=== PATIENT | male | born 2005 | race Caucasian/White ===

== ENCOUNTER 2025-02-26 13:06 | Outpatient (AMB) | payer OTHER, SELFPAY ==
--- NOTE | 2025-02-26 13:07 | A.OFFVIS_ITS ---
Vital Signs 02/26/25 13:14 Height 5 ft 7 in Weight 130 lb BMI 20.4 Intake Visit Reasons: New Pt - right middle trigger finger Intake Note: Asim is a 19 year old right hand dominant male who presents today as a New Patient for evaluation of Right Middle Finger Locking & Catching. At today's visit he states that a year ago is when he had a right middle finger injury due to climbing. He stated that he was seen at another Orthopedic Office where he was referred to OT and was given a cortisone injection. Patient added that after receiving the injection is when he noticed the discomfort. He states that he is currently attending OT at [facility]. He noted that he has slight numbness around the middle finger but does not radiate into the hand or other fingers. . Allergies No Known Allergies Allergy (Verified 02/26/25 13:14) HPI HPI New Pt - right middle trigger finger: Details: Asim is a 19 year old right hand dominant male who presents today as a New Patient for evaluation of Right Middle Finger Locking & Catching. At today's visit he states that a year ago is when he had a right middle finger injury due to climbing. He stated that he was seen at another Orthopedic Office where he was referred to OT and was given a cortisone injection. Patient added that after receiving the injection is when he noticed the discomfort. He states that he is currently attending OT at [facility]. He noted that he has slight numbness around the middle finger but does not radiate into the hand or other fingers. Of note, the patient does state that the finger only walked on that 1 occasion, and has not had any significant locking since. 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 Neuro: Normal sensation of the tips of all digits of the right hand at this time Vascular: Cap refill brisk Pain: No tenderness to palpation of the A1 basil of the right middle finger No pain with range of motion of the right hand ROM: Patient is able to make a closed fist and extend all digits of the right hand fully No visible or palpable locking and catching of the right middle finger in the office today Skin: No lacerations or abrasions. General: No ecchymosis, erythema, or evidence of infection. Psych: Appears grossly normal Affect normal Attitude cooperative Assessment & Plan Assessment & Plan (1) Trigger finger, right middle finger: Code(s): M65.331 - Trigger finger, right middle finger Category: Medical Plan 1. Right middle finger trigger finger With only 1 episode of locking and catching noted Patient is educated about this condition Patient is educated about the typical recovery course At this time, due to having no ongoing symptoms at this time, I feel it is best for the patient to continue occupational therapy If the patient does begin to experience any further locking and catching of the right middle finger, he should call us for treatment options, including but not limited to injections Patient understands this in his amenable to this plan Follow-up as needed with any acute concerns Coding Level of Care Code New Pt Level 3 (85133) Diagnoses Trigger finger, right middle finger M65.331
[2025-02-26 13:14] VITALS: BMI 20.4
--- OUTSIDE RECORDS SUMMARY | 2025-02-26 15:49 | XMS_ITS | Clinical Summary ---
Author Organization [facility] Address [address] [place] [phone] Phone Care Team Providers Care Clinical Support Associate Name Role Phone Jennifer Isbell MD Primary Care Provider [phone] Allergies No known active allergies Medications No known medications Active Problems Problem Noted Date Diagnosed Date Well adult exam 10/29/2024 Assessment & Plan (10/29/2024 3:02 PM EDT): Well 19 yr old Consulting hand ortho for discomfort right index finger after a rock climbing injury [place] January Already consulted with DR Azul, ortho Up to ate imms Return one year and as needed Call with concerns Pain in finger 10/25/2024 Well adolescent visit 10/14/2023 Assessment & Plan (10/14/2023 4:04 PM EDT): Well 17 yr old UTD imms Re evaluate one year and prn Labs per rders Resolved Problems Problem Noted Date Diagnosed Date Resolved Date Fever 07/12/2024 10/29/2024 Cough in pediatric patient 07/12/2024 0 10/29/2024 Viral pharyngitis 03/23/2024 10/29/2024 Assessment & Plan (03/23/2024 3:46 PM EST): Sore throat for one wek, no associated symptoms No fevers, temp at office 99 tympanic Neg home covid test Rapid strep neg TC Symptomatic Rx Re evaluate if not improving, call with concerns Fatigue 02/06/2024 03/23/2024 Assessment & Plan (02/07/2024 10:05 AM EDT): Fatigue with intermittent cough since mid November, and feeling warm even though afebrile Symptoms started after covid infection, had covid early November with another rebound covid illness a week later No associated cardiovascular symptoms, no palpitations, not dizzy, no shortness of breath or chest pain Had labs done ( routine well labs that he could not get done with physical Labs were done December 22, steph [facility] CMP TSH) Exam today is remarkable likely fatigue is post covid, ?? Long covid Does not need to repeat above labs No specific intervention, pay attention to proper sleep and diet Rest as needed, cont with basketball and rock climbing as able Return if not improving by winter break ( currently in [employer], [facility]) Call with concerns Wants to get flu vaccine later Acne 03/06/2019 10/29/2024 Encounters Date Type Department Care Team Description 01/25/2025 4:05 PM EDT Follow-Up [facility], [address] [place] [address] Marlo Heller MD Acquired trigger finger (Primary Dx) 12/04/2024 3:50 PM EDT Follow-Up [facility], [address] [place] [address] Marlo Heller MD Synovitis and tenosynovitis (Primary Dx); Tendinitis 11/28/2024 Telephone [facility], [address] [place] [address] Marlo Heller MD from Last 3 Months Immunizations Immunization Administration Dates Next Due COVID-19 (Pre-02/14) Pfizer Vaccine, mRNA, PF 04/20/2021 DTaP 11/18/2009, 7,05/10/2005,03/03,2004 [id number] FORMULATION 04/16/2009,02/24 HPV9 09/05/2017,03/04/2017 Hepatitis A, Unspecified 07/18/2009,01/15/2009 Hepatitis B, unspecified formulation 05/10/2005, 2004,2004 Hib, unspecified formulation 02/02/2006, 05/10/2005,03/03/2005,12/29 INFLUENZA, SPLIT VIRUS, TRIVALENT PF 03/03/2024 INFLUENZA, SPLIT VIRUS, TRIV ALENT W/ PRESERVATIVE IM 02/19/2014 IPV 11/18/2009, 7,03/03/2005,12/29 Influenza Quadrivalent MDCK Preservative Free IM 03/09/2020,01/29/2016 Influenza Quadrivalent Prese rvative Free IM 03/28/2022,02/04/2021,03/06/2019,02/11 Influenza, Unspecified Formulation 02/03,02/29/2012,01/22/2011,02/21,01/15/2009,01/22/2008,03/23/2007 ,03/08/2006,02/02/2006,05/10/2005 MMR 10/30/2008,02/02/2006 Meningococcal B, OMV (MenB-4C) 11/18/2022,2022 Meningococcal MCV4P 10/12/2021,03/02/2016 Pneumococcal, Unspecified Formulation ,05/10/2005,03/03/2005,12/29 Tdap 03/02/2016 Varicella 10/30/2008,11/05/2005 Social History Tobacco Use Types Packs/Day Years Used Date Smoking Tobacco: Never Passive Smoke Exposure: Never Smokeless Tobacco: Never Tobacco Cessation:Counseling Given: Not Answered Alcohol Use Standard Drinks/Week Comments Not Currently 0 (1 standard drink = 0.6 oz pur e alcohol) rare alcohol Education Answer Date Recorded Are you interested in more education? Not on reza e 08/21/2022 Are you concerned about learning? Not on file 08/21/2022 No 08/21/2022 No 08/21/2022 Digital Access Answer Date Recorded No 09/19/2022 No 09/19/2022 Reliable internet access at home? Not on file 09/19/2022 Device with a working camera? Not on file Sex and Gender Information Value Date Recorded Sex Assigned at Not on file Legal Sex Male 8:20 PM EST Gender Identity Not on file Sexual Orientation Not on file Last Filed Vital Signs Vital Sign Reading Time Taken Comments Blood Pressure 104/60 10/29/2024 1:53 PM EDT Pulse 60 10/29/2024 1:53 PM EDT Temperature 37.1 C (98.8 F) 07/12/2024 10:47 AM EDT Respiratory Rate 16 02/09/2024 2:41 PM EDT Oxygen Saturation 98% 07/12/2024 10:47 AM EDT Inhaled Oxygen Concentration - - Weight 61.2 kg (135 lb) 01/25/2025 2:04 PM EDT Height 170.2 cm (5' 7 ) 01/25/2025 2:04 PM EDT Body Mass Index 21.14 01/25/2025 2:04 PM EDT Plan of Treatment Health Maintenance Due Date Last Done Comments HEPATITIS C SCREENING 2022 HIV ONE-TIME SCREENING (18-65 YEARS) 2022 INFLUENZA VACCINE (#1) 2024 , 03/28/2022, 02/04/2021, Additional history exists COVID-19 VACCINE ( season) 2024 05/15/2024, 03/11/2023, 11/28/2022, Additional history exists DEPRESSION SCREENING 10/29/2025 10/29/2024, 10/30/19 25 DEVELOPMENTAL/BEHAVIORAL SCREENING (PHQ, PSC, or SWYC) 10/29/2025 10/29/2024, 10/29/2024, 10/14/2023 SMOKING Hx and SMOKELESS TOBACCO SCREENING 10/29/2025 10/29/2024 COMBINED DTaP,Tdap,Td (7 - Td or Tdap) 03/02/2026 03/02/2016, 11/18/2009, 05/04/2006, Additional history exists PNEUMOCOCCAL VACCINES (0-49 years) Aged Out 11/05/2005, 05/10/2005, 03/03/2005, Additional history exists No longer eligible based on patient's age to complete this topic HIB VACCINES Completed 02/02/2006, 04/25, 03/03/2005, Additional history exists MMR VACCINES Completed 10/30/2008, 02/02/2006 VARICELLA VACCINES Completed 10/30/2008, 11/05/2005 HEPATITIS A VACCINES Completed 07/18/2009, 01/16/20 09 HPV VACCINES Completed 09/05/2017, 03/04/2017 MENINGOCOCCAL VACCINES (ACWY) Completed 10/12/2021, 03/02/2016 MENINGOCOCCAL VACCINES (B) Completed 11/18/2022, ADOLESCENT UNIVERSAL LIPID SCREENING Completed 12/23/2023 Medical Devices Not on file Procedures Procedure Name Priority Date/Time Associated Diagnosis Comments LIPID PANEL Routine 12/23/2023 2:01 PM EDT Well adolescent visit from Last 3 Months or Most Recently Relevant to Health Maintenance Results * Lipid panel (12/23/2023 2:01 PM EDT) Cholesterol 147 125 - 200 mg/dL [facility] (CLIA# [id number]) Comment: Cholesterol Reference: Desirable cholesterol: < 170 mg/dL Borderline cholesterol: 170-200 mg/dL High cholesterol: > 200 mg/dL Triglycerides 83 0 - 150 mg/dL [facility] (CLIA# [id number]) HDL Cholesterol 50 >40 mg/dL [facility] (CLIA# [id number]) Comment: HDL Reference: Low (Undesirable, High Risk): <40.0 mg/dL High (Desirable, Low Risk): >=60.0 mg/dL LDL Cholesterol(Calc) 80.6 <160 mg/dL [facility] (CLIA# [id number]) Comment: LDL Reference: OPTIMAL: <100 mg/dL NEAR OPTIMAL/ABOVE OPTIMAL: 100-129 mg/dL BORDERLINE HIGH: 130-159 mg/dL HIGH: 160-189 mg/dL VERY HIGH: >=190 mg/dL Chol/HDL Ratio 3.0 1.5 - 5.0 [facility] (CLIA# [id number]) 12/23/2023 2:01 PM EDT 12/23/2023 2:34 PM EDT us Jennifer Isbell MD LAB BLOOD BKR ORDERABLES Final Result [facility] (CLIA# [id number]) [address] [place] [address] from Last 3 Months or Most Recently Relevant to Health Maintenance Insurance [facility] [place] [address] [address] [place] [address] [employer] Care Teams Clinical Support Associate Relationship Specialty Start Date End Date Jennifer Isbell MD [address] [place] [id number] [email or web address] PCP - General Pediatrics 07/05/22 Additional Source Comments The information contained in this document represents components of the legal health record. It is not the complete legal health record.[facility]
== END 2025-02-26 14:47 | disposition home or self-care (01) ==
LOC: HO.HOS 13:07
DX: M65.331 Trigger finger, right middle finger (principal)
CPT/HCPCS: 99203